=== PATIENT | male | born 1960 | race Caucasian/White ===

== ENCOUNTER → 2016-09-01 | Outpatient (REF) | payer OTHER ==
[~2016-09-01] MED LIST: NORC5TAB PO; SOMA350T PO
== END ==
LOC: M LAB REF 17:35
PROVIDERS: ATTEND Internal Medicine
DX: E22.1 Hyperprolactinemia (principal)

== ENCOUNTER → 2017-02-24 | Outpatient (REF) | payer OTHER ==
[~2017-02-24] MED LIST changes: +NORC1TAB4 PO; -NORC5TAB PO
== END ==
LOC: M LAB REF 12:29
PROVIDERS: ATTEND Internal Medicine
DX: E22.1 Hyperprolactinemia (principal)

== ENCOUNTER → 2017-12-09 | Outpatient (REF) | payer OTHER ==
[2017-12-09 19:03] LABS: PROLACTIN 1.5 NG/ML (2.1-17.7)
== END ==
LOC: M LAB REF 16:43
DX: E22.1 Hyperprolactinemia (principal)

== ENCOUNTER → 2018-06-14 | Outpatient (REF) | payer OTHER ==
[2018-06-14 18:33] LABS: PROLACTIN 2.8 NG/ML (2.1-17.7)
== END ==
LOC: M LAB REF 17:17
DX: E22.1 Hyperprolactinemia (principal)

== ENCOUNTER 2018-08-18 23:44 | Emergency (ER) | payer OTHER ==
[~2018-08-18] VITALS: Ht 170.2 cm; Wt 100.0 kg
[2018-08-18 23:44] VITALS: BP 161/81
[2018-08-18] MEDS ORDERED: METF750T (23:52)
[2018-08-18] MEDS ORDERED: BROM1TAB (23:52)
[2018-08-18] MEDS ORDERED: ATOR1TAB21 (23:52)
[2018-08-18] MEDS ORDERED: TRUL0.5I (23:52)
--- NOTE | 2018-08-19 06:55 | REP ---
The clinical: Trauma. Pain . Technique: AP, lateral, bilateral oblique views right ankle . Findings: No acute fracture or dislocation. Lateral swelling noted. Skeletal structures and joint spaces are intact and normal. Ankle mortise appears stable. No subcutaneous emphysema or radiodense foreign body. Impression: Lateral swelling. No acute fracture. Electronically Signed by John Dotson MD 08/19/2018 06:47 A
--- NOTE | 2018-08-19 06:56 | REP ---
Clinical: Pain. Technique: AP and lateral views of the right tibia / fibula. Findings: In conjunction with ankle series for evaluation of the distal tibia / fibula, there is no evidence for acute fracture or dislocation. Swelling overlies the lateral malleolus. Generalized age-related changes at the knee. No subcutaneous emphysema or radiodense foreign body. Impression: No acute fracture dislocation. Electronically Signed by John Dotson MD 08/19/2018 06:48 A
== END 2018-08-19 00:39 | disposition home or self-care (01) ==
LOC: M ED 23:44
DX: S93.402A Sprain of unspecified ligament of left ankle, initial encounter (principal); W19.XXXA Unspecified fall, initial encounter; X50.1XXA Overexertion from prolonged static or awkward postures, initial encounter; Y92.89 Other specified places as the place of occurrence of the external cause; E11.9 Type 2 diabetes mellitus without complications; E78.5 Hyperlipidemia, unspecified

== ENCOUNTER → 2018-12-21 | Outpatient (REF) | payer OTHER ==
[~2018-12-21] MED LIST changes: +ATOR1TAB21; +BROM1TAB; +METF750T; -NORC1TAB4 PO; +NORC1TAB7 PO; +TRUL0.5I
== END ==
LOC: M LAB REF 16:52
PROVIDERS: ATTEND Internal Medicine
DX: E22.1 Hyperprolactinemia (principal)

== ENCOUNTER → 2019-02-02 | Outpatient (CLI) | payer OTHER ==
[~2019-02-02] MED LIST changes: -ATOR1TAB21; +ATOR1TAB21 PO; -BROM1TAB; +BROM1TAB PO; -METF750T; +METF750T PO; -TRUL0.5I; +TRUL0.5I SQ
--- NOTE | 2019-02-02 15:51 | ECGEPIP ---
[facility] Test Date: 2019-02-02 Pat Name: REBECCA CAST Department: Room: - Gender: Male Excellence Leader: JO : 1960 Requested By: ANNETTA Carlos Order Number: [id number] Reading MD: Sunni Ferrer Measurements Intervals [place] Rate: 70 P: 11 SD: 167 QRS: 48 QRSD: 101 T: 19 QT: 362 QTc: 392 Interpretive Statements SINUS RHYTHM Electronically Signed on 02-02-2019 15:51:37 EDT by Sunni Ferrer
== END ==
LOC: M EKG 14:33
PROVIDERS: ATTEND Anesthesiology
DX: Z01.818 Encounter for other preprocedural examination (principal); E78.00 Pure hypercholesterolemia, unspecified; E11.9 Type 2 diabetes mellitus without complications; K21.9 Gastro-esophageal reflux disease without esophagitis

== ENCOUNTER 2019-02-08 09:36 | Day surgery (SDC) | payer OTHER ==
[~2019-02-08] VITALS: Ht 170.2 cm; Wt 98.8 kg
[~2019-02-08 09:36] MED LIST changes: -BROM1TAB PO; +BROM2.5T2 PO; +BUPIVACAINE/EPIN 0.25% 30 ML VIAL As Ordered ONE; +LIDOCAINE 2% INJ 100 MG/5 ML SDV (FOR ANES.) As Ordered ONE; +LR 1,000 ML IV ONE; -METF750T PO; +METF750T36 PO; +MIDAZOLAM INJ 2 MG/2 ML VIAL (J2250) As Ordered ONE; +ROCURONIUM BROMIDE 50 MG/5 ML VIAL As Ordered ONE; +ceFAZolin SOD 1 GM in D5W MINI-BAG PLUS 50 ML IV ONE; +fentaNYL 250 MCG/5 ML INJECTION (J3010) As Ordered ONE; +propofoL 200 MG/20 ML VIAL As Ordered ONE
[2019-02-08 10:18] LABS: HEMATOCRIT 41.3 % (42.0-52.0); HEMOGLOBIN 13.8 g/dl (13.5-17.5); MEAN CORPUSCULAR HEMOGLOBIN 30.6 pg (27.0-33.0); MEAN CORPUSCULAR HGB CONC 33.4 g/dl (32.0-36.5); MEAN CORPUSCULAR VOLUME 91.6 fl (80.0-96.0); PLATELET COUNT, AUTOMATED 313 10^3/uL (150-450); RED BLOOD COUNT 4.51 10^6/uL (4.30-6.10); WHITE BLOOD COUNT 5.3 10^3/uL (4.0-10.0)
[2019-02-08 10:36] LABS: BLOOD UREA NITROGEN 15 MG/DL (7-18); CALCIUM LEVEL 8.8 MG/DL (8.5-10.1); CARBON DIOXIDE LEVEL 30 MEQ/L (21-32); CHLORIDE LEVEL 105 MEQ/L (98-107); CREATININE FOR GFR 0.93 MG/DL (0.70-1.30); GLOMERULAR FILTRATION RATE > 60.0 (>56); GLUCOSE, FASTING 114 MG/DL (70-100); SODIUM LEVEL 140 MEQ/L (136-145)
[2019-02-08] MEDS ORDERED: KETOROLAC 60 MG/2 ML VIAL (J1885) As Ordered ONE (11:45)
[2019-02-08] MEDS ORDERED: METOCLOPRAMIDE INJ 10MG/2ML VIAL (J2765) As Ordered ONE (11:45)
[2019-02-08] MEDS ORDERED: SUGAMMADEX SODIUM 500 MG/5 ML VIAL (BRIDION) As Ordered ONE (11:45)
[2019-02-08] MEDS ORDERED: ONDANSETRON 4MG/2ML VIAL (J2405) As Ordered ONE (11:45)
[2019-02-08] MEDS ORDERED: ACETAMINOPHEN 1000MG 100ML IV BTL (OFIRMEV) (J0131 PER 10MG) As Ordered ONE (11:45)
[2019-02-08] MEDS ORDERED: fentaNYL 100 MCG/2 ML INJECTION (J3010) As Ordered ONE (12:12)
--- NOTE | 2019-02-08 12:35 | RO ---
DATE OF PROCEDURE: 02/08/2019 PREOPERATIVE DIAGNOSIS: Symptomatic gallstones/history of cholecystitis. POSTOPERATIVE DIAGNOSIS: Symptomatic gallstones/history of cholecystitis. PROCEDURE: Laparoscopic cholecystectomy. SURGEON: oYni Manriquez Jr., MD FUR DYER: ANESTHESIA: General endotracheal anesthesia. ESTIMATED BLOOD LOSS (EBL): Minimal. FLUIDS: Crystalloid. BRIEF PROCEDURE SUMMARY: The patient was brought to the operating room and was given general anesthesia. After adequate anesthesia and preoperative antibiotics were given, the patient was prepped and draped in usual sterile fashion. Next, a periumbilical incision was made with skin knife. Blunt dissection was carried down to the fascia. What was noted was that there was a small fascial defect at the umbilicus; and thus, I felt that an incision through the small umbilical hernia was reasonable. Thus, Veress needle placed into the abdominal cavity, insufflated to 15 mm of pressure, and a dilating 10-mm trocar was placed through this fascial defect. Next, the patient was placed in a head-up [id number] position, and the epigastric and two lateral trocars were placed under direct visualization. The gallbladder was grasped, retracted superiorly. There were some adhesions in the gallbladder that were taken down with hook cautery; and eventually, the neck of the gallbladder was well visualized. The peritoneum was well visualized, and the cystic artery was well visualized, as well. The cystic artery was completely surrounded; and where it went up onto the gallbladder itself, it was followed for a centimeter or so; and then it was clipped proximally and distally and transected. The cystic duct was also seen coming off of the gallbladder itself and the neck of the gallbladder. This was slightly a fluted-type of presentation of the neck of the gallbladder and cystic duct area, and stones that were right in the neck of the gallbladder were milked back into the gallbladder itself. Clips were placed on the cystic duct/gallbladder neck junction, then transected, then the gallbladder was removed from the gallbladder bed using electrocautery. It was placed in an Endo Catch bag, brought out through the umbilicus. 0 Vicryl was used to close the fascia at the umbilicus after copiously irrigating until clear in the right upper quadrant. The incisions were all closed with 4-0 Vicryl and Steri-Strips, and a dry sterile dressing was applied. The patient was awakened, extubated, and brought to the recovery room awake, alert, and hemodynamically stable. Sponge and needle counts correct times two.
[2019-02-08] MEDS ORDERED: LR 1,000 ML IV SCH ×2 (12:45)
[2019-02-08] MEDS ORDERED: NORCO, ANEXSIA 5/325MG TABLET (HYDROcodone/ACETAMINOPHEN) PO PRN (12:45)
[2019-02-08] MEDS ORDERED: ONDANSETRON 4MG/2ML VIAL (J2405) IV PRN (12:45)
[2019-02-08] MEDS ORDERED: fentaNYL 100 MCG/2 ML INJECTION (J3010) IV PRN (12:45)
[2019-02-08 13:37] VITALS: BP 144/69
== END 2019-02-08 14:25 | disposition home or self-care (01) ==
LOC: M SDC 09:36
PROVIDERS: ATTEND Surgery
DX: K80.10 Calculus of gallbladder with chronic cholecystitis without obstruction (principal); E11.9 Type 2 diabetes mellitus without complications; Z79.84 Long term (current) use of oral hypoglycemic drugs; G47.30 Sleep apnea, unspecified; Z79.899 Other long term (current) drug therapy; E78.5 Hyperlipidemia, unspecified; K21.9 Gastro-esophageal reflux disease without esophagitis
CPT/HCPCS: 36415; 47562; 80048; 85027; 88304; J0131; J0690; J1885; J2250; J2405; J2765; J3010

== ENCOUNTER → 2019-06-27 | Outpatient (REF) | payer OTHER ==
[~2019-06-27] MED LIST changes: +BROM1TAB PO; -BROM2.5T2 PO; -BUPIVACAINE/EPIN 0.25% 30 ML VIAL As Ordered ONE; -LIDOCAINE 2% INJ 100 MG/5 ML SDV (FOR ANES.) As Ordered ONE; -LR 1,000 ML IV ONE; -MIDAZOLAM INJ 2 MG/2 ML VIAL (J2250) As Ordered ONE; -ROCURONIUM BROMIDE 50 MG/5 ML VIAL As Ordered ONE; -ceFAZolin SOD 1 GM in D5W MINI-BAG PLUS 50 ML IV ONE; -fentaNYL 250 MCG/5 ML INJECTION (J3010) As Ordered ONE; -propofoL 200 MG/20 ML VIAL As Ordered ONE
== END ==
LOC: M LAB REF 12:44
PROVIDERS: ATTEND Internal Medicine
DX: E22.1 Hyperprolactinemia (principal)

== ENCOUNTER → 2020-01-02 | Outpatient (REF) | payer OTHER ==
[~2020-01-02] MED LIST changes: -BROM1TAB PO; +BROM2.5T2 PO
== END ==
LOC: M LAB REF 12:01
PROVIDERS: ATTEND Internal Medicine
DX: E22.1 Hyperprolactinemia (principal)

== ENCOUNTER → 2020-02-15 | Outpatient (CLI) | payer OTHER ==
[~2020-02-15] MED LIST changes: +INVO100T PO; +MULTCAP PO
== END ==
LOC: M LABSMTC 11:11
PROVIDERS: ATTEND Anesthesiology
DX: Z03.818 Encounter for observation for suspected exposure to other biological agents ruled out (principal); Z11.59 Encounter for screening for other viral diseases

== ENCOUNTER 2020-03-02 13:26 | Day surgery (SDC) | payer OTHER ==
[2020-03-02] MEDS ORDERED: fentaNYL 100 MCG/2 ML INJECTION (J3010) ONE (13:57)
[2020-03-02] MEDS ORDERED: propofoL 200 MG/20 ML VIAL ONE ×3 (13:57→15:00)
[2020-03-02] MEDS ORDERED: LIDOCAINE 2% 100MG/5ML SDV (FOR ANES.) ONE (13:57)
--- NOTE | 2020-04-04 11:28 | ROOR ---
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 Procedure: Pre-Anesthesia Assessment: - The heart rate, respiratory rate, oxygen saturations, blood pressure, adequacy of pulmonary ventilation, and response to care were monitored throughout the procedure. The Colonoscope was introduced through the anus and advanced to the terminal ileum, with identification of the appendiceal orifice and IC valve. The colonoscopy was performed without difficulty. The patient tolerated the procedure well. The quality of the bowel preparation was good. Findings: The perianal and digital rectal examinations were normal. Mild sigmoid diverticulosis and small internal hemorrhoids. Impression: - Mild sigmoid diverticulosis and small internal hemorrhoids. - No specimens collected. - The examination was otherwise normal on direct and retroflexion views. Recommendation: - Repeat colonoscopy in 5 years for surveillance. Sujit Jarquin MD Sujit JARQUIN MD 03/02/2020 3:05:14 PM Number of Addenda: 0 Note Initiated On: 03/02/2020 1:38 PM Estimated Blood Loss: Estimated blood loss: none.
--- NOTE | 2020-04-04 11:28 | ROOR ---
Patient Name: Juarez Gordon Procedure Date: 03/02/2020 1:39 PM Date of : 1960 Age: 59 Room: [facility] Gender: Male Note Status: Finalized Procedure: Upper GI endoscopy Indications: Heartburn, Laryngitis Providers: Sujit JARQUIN MD Referring MD: BLAZE DEGROOT JR, MD Requesting Provider: Medicines: Monitored Anesthesia Care Complications: No immediate complications. Procedure: Pre-Anesthesia Assessment: - The heart rate, respiratory rate, oxygen saturations, blood pressure, adequacy of pulmonary ventilation, and response to care were monitored throughout the procedure. The Endoscope was introduced through the mouth, and advanced to the second part of duodenum. The upper GI endoscopy was accomplished without difficulty. The patient tolerated the procedure well. Findings: The esophagus was normal. The stomach was normal. The examined duodenum was normal. Impression: - Normal esophagus. - Normal stomach. - Normal examined duodenum. - No specimens collected. 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 Recommendation: - Follow an antireflux regimen. - Observe patient's clinical course. - Consider trial on Omeprazole 20-40 bid x 3 months. Hoarse voice/laryngitis may respond, over 3-4 months on PPI therapy. Sujit Jarquin MD Sujit JARQUIN MD 03/02/2020 3:10:51 PM Electronically signed by Sujit JARQUIN MD Number of Addenda: 0 Note Initiated On: 03/02/2020 1:39 PM Estimated Blood Loss: Estimated blood loss: none.
== END 2020-03-02 15:40 | disposition home or self-care (01) ==
LOC: M SDC 13:26
PROVIDERS: ATTEND Internal Medicine Gastroenterology
DX: Z12.11 Encounter for screening for malignant neoplasm of colon (principal); Z86.010 Personal history of colon polyps; K57.30 Diverticulosis of large intestine without perforation or abscess without bleeding; K21.9 Gastro-esophageal reflux disease without esophagitis; R12 Heartburn; J04.0 Acute laryngitis; E11.9 Type 2 diabetes mellitus without complications; G47.30 Sleep apnea, unspecified; Z79.84 Long term (current) use of oral hypoglycemic drugs; Z79.899 Other long term (current) drug therapy
CPT/HCPCS: 43235; 45378; J3010

== ENCOUNTER → 2020-05-04 | Outpatient (CLI) | payer OTHER ==
--- NOTE | 2020-05-09 06:58 | SLEEPHOME ---
DATE: 05/04/2020 ORDERED BY: Dr. Kai Desir Diagnostic home sleep testing was performed due to concern for the obstructive sleep apnea syndrome. For testing, a nocturnal T3 respiratory monitoring device was used. Continuous record was made of pulse, oxygen saturation, air flow, chest and abdominal strain, and body position. Nine hours and 59 minutes of data were reviewed. There was 6 hours and 32 minutes marked as time in bed. During the interval marked time in bed, there were 52 respiratory events identified of 10 seconds in duration or greater for a respiratory event index of 8. The events were primarily obstructive. Baseline pulse rate was 64. Pulse rate ranged 54 to 82. Baseline saturation was 94%. Saturations fell to 87%. Testing was performed in both the supine and nonsupine positions. IMPRESSION: Abnormal home sleep testing with repetitive respiratory events and oxygen desaturations to 87% with a respiratory events index of 8 is consistent with the obstructive sleep apnea syndrome. RECOMMENDATION: The patient should be encouraged to undergo a formal sleep evaluation. [facility]
== END ==
LOC: M SLEEP HO 11:21
PROVIDERS: ATTEND Physician Assistant
DX: G47.33 Obstructive sleep apnea (adult) (pediatric) (principal)

== ENCOUNTER → 2021-04-19 | Outpatient (REF) | payer OTHER | LOC: M LAB REF 16:14 | PROVIDERS: ATTEND Internal Medicine | DX: E22.1 Hyperprolactinemia (principal) ==

== ENCOUNTER → 2021-10-21 | Outpatient (REF) | payer OTHER | LOC: M LAB REF 11:56 | PROVIDERS: ATTEND Internal Medicine | DX: E23.6 Other disorders of pituitary gland (principal) ==

== ENCOUNTER → 2022-04-29 | Outpatient (REF) | payer OTHER ==
[2022-04-30 15:30] LABS: PROLACTIN 8.6 NG/ML (2.1-17.7)
== END ==
LOC: M LAB REF 10:53
PROVIDERS: ATTEND Internal Medicine
DX: E23.6 Other disorders of pituitary gland (principal); E22.1 Hyperprolactinemia

== ENCOUNTER → 2022-10-27 | Outpatient (REF) | payer OTHER ==
[2022-10-27 19:13] LABS: PROLACTIN 9.21 NG/ML (2.1-17.7)
== END ==
LOC: M LAB REF 12:11
PROVIDERS: ATTEND Internal Medicine
DX: E22.1 Hyperprolactinemia (principal); E23.6 Other disorders of pituitary gland

== ENCOUNTER → 2023-01-16 | Outpatient (CLI) | payer OTHER | LOC: M PLARAD 12:35 | PROVIDERS: ATTEND Internal Medicine | DX: D35.2 Benign neoplasm of pituitary gland (principal) ==

== ENCOUNTER → 2023-04-28 | Outpatient (REF) | payer OTHER ==
[2023-04-28 12:53] LABS: PROLACTIN 8.26 NG/ML (2.1-17.7)
== END ==
LOC: M LAB REF 11:59
PROVIDERS: ATTEND Internal Medicine
DX: E23.6 Other disorders of pituitary gland (principal); E22.1 Hyperprolactinemia

== ENCOUNTER → 2023-10-23 | Outpatient (REF) | payer OTHER ==
[2023-10-23 14:15] LABS: PROLACTIN 6.27 NG/ML (2.1-17.7)
== END ==
LOC: M LAB REF 12:44
PROVIDERS: ATTEND Internal Medicine
DX: E22.1 Hyperprolactinemia (principal); E23.7 Disorder of pituitary gland, unspecified; Z12.5 Encounter for screening for malignant neoplasm of prostate

== ENCOUNTER 2024-02-29 15:30 | Emergency (ER) | payer OTHER ==
[~2024-02-29] VITALS: Ht 170.2 cm; Wt 94.7 kg
[2024-02-29 16:23] LABS: BASO # 0.1 10^3/uL (0.0-0.2); EOS # 0.2 10^3/uL (0.0-0.5); EOS % 3.2 % (0.0-3.0); HEMATOCRIT 45.1 % (42.0-52.0); HEMOGLOBIN 15.5 g/dl (13.5-17.5); LYMPH # 1.6 10^3/uL (1.5-5.0); LYMPH % 24.1 % (24.0-44.0); MEAN CORPUSCULAR HGB CONC 34.4 g/dl (32.0-36.5); MEAN CORPUSCULAR VOLUME 93.2 fl (80.0-96.0); MONO # 0.6 10^3/uL (0.0-0.8); NEUTROPHILS # 4.2 10^3/uL (1.5-8.5); NEUTROPHILS % 62.6 % (36.0-66.0); PLATELET COUNT, AUTOMATED 295 10^3/uL (150-450); RED BLOOD COUNT 4.84 10^6/uL (4.30-6.10); WHITE BLOOD COUNT 6.8 10^3/uL (4.0-10.0)
[2024-02-29 16:39] LABS: LIPASE 47 U/L (12-53)
[2024-02-29 16:40] LABS: CK-MB VALUE MASS < 1.0 NG/ML (<3.6)
[2024-02-29 16:41] LABS: CPK CREATINE PHOSPHOKINASE 68 U/L (46-171); MB/CK RELATIVE INDEX 1.47 (< OR =4)
[2024-02-29 16:42] LABS: ALBUMIN 3.8 G/DL (3.2-5.2); ALKALINE PHOSPHATASE 100 U/L (46-116); ALT/SGPT 24 U/L (7.0-40); AST/SGOT 14 U/L (<34); BILIRUBIN,DIRECT 0.2 MG/DL (<0.4); BILIRUBIN,TOTAL 0.7 MG/DL (0.3-1.2); BLOOD UREA NITROGEN 16 MG/DL (9-23); CARBON DIOXIDE LEVEL 29 MMOL/L (20-31); CHLORIDE LEVEL 106 MMOL/L (98-107); CREATININE FOR GFR 0.81 MG/DL (0.70-1.30); GLOMERULAR FILTRATION RATE > 60.0 (>49); GLUCOSE, FASTING 216 MG/DL (74-106); POTASSIUM SERUM 4.2 MMOL/L (3.5-5.1); SODIUM LEVEL 140 MMOL/L (136-145); TOTAL PROTEIN 7.2 G/DL (5.7-8.2)
[2024-02-29 16:43] LABS: THYROID STIMULATING HORMONE 2.248 uIU/ML (0.55-4.78)
[2024-02-29 16:44] LABS: FREE T4 1.15 NG/DL (0.89-1.76)
[2024-02-29 16:51] LABS: INR 1.04; PROTHROMBIN TIME 13.3 SECONDS (12.5-14.5)
[2024-02-29 19:19] LABS: CK-MB VALUE MASS 1.8 NG/ML (<3.6); MB/CK RELATIVE INDEX 1.55 (< OR =4)
[2024-02-29] MEDS: NITROGLYCERIN 0.4MG SUBL TABLET SL PRN (19:42)
[2024-02-29 19:51] VITALS: BP 146/69
[2024-02-29 19:56] VITALS: TEMP 97
[2024-02-29] MEDS ORDERED: ISOVUE-370 76% 100ML VIAL As Ordered ONE (20:39)
[2024-02-29 21:20] LABS: CK-MB VALUE MASS 5.4 NG/ML (<3.6); MB/CK RELATIVE INDEX 4.18 (< OR =4)
[2024-02-29] MEDS: HEPARIN DRIP 25,000 UNITS in IV 1 EA IV SCH (21:39)
[2024-02-29 22:01] VITALS: BP 170/87; O2SAT 96
== END 2024-02-29 22:24 | disposition short-term general hospital (02) ==
LOC: M ED 15:30
DX: I21.4 Non-ST elevation (NSTEMI) myocardial infarction (principal); R00.1 Bradycardia, unspecified; E11.9 Type 2 diabetes mellitus without complications; I10 Essential (primary) hypertension; E78.5 Hyperlipidemia, unspecified; Z79.84 Long term (current) use of oral hypoglycemic drugs; Z79.02 Long term (current) use of antithrombotics/antiplatelets; Z79.899 Other long term (current) drug therapy
CPT/HCPCS: 71045; 71275; 80048; 80076; 82550; 82553; 83690; 83880; 84439; 84443; 84484; 85025; 85610; 85730; 93005; 93041; 94760; 96374; 99285; Q9967

== ENCOUNTER → 2024-04-21 | Outpatient (REF) | payer OTHER ==
[2024-04-21 12:46] LABS: PROLACTIN 5.66 NG/ML (2.1-17.7)
== END ==
LOC: M LAB REF 11:46
PROVIDERS: ATTEND Internal Medicine
DX: E22.1 Hyperprolactinemia (principal); E23.7 Disorder of pituitary gland, unspecified

== ENCOUNTER → 2024-10-20 | Outpatient (REF) | payer OTHER ==
[2024-10-20 13:25] LABS: PROLACTIN 6.28 NG/ML (2.1-17.7)
== END ==
LOC: M LAB REF 12:13
PROVIDERS: ATTEND Internal Medicine
DX: E22.1 Hyperprolactinemia (principal); E23.7 Disorder of pituitary gland, unspecified

== ENCOUNTER → 2025-04-19 | Outpatient (REF) | payer OTHER ==
[~2025-04-19] MED LIST changes: +KETO-204 PO; +TAMS-18 PO
[2025-04-19 13:34] LABS: PROLACTIN 7.74 NG/ML (2.1-17.7); TESTOSTERONE 382.0 NG/DL (241-827)
== END ==
LOC: M LAB REF 11:58
PROVIDERS: ATTEND Internal Medicine
DX: E22.1 Hyperprolactinemia (principal); E23.7 Disorder of pituitary gland, unspecified